=== PATIENT | female | born 1960 | race Asian ===

== ENCOUNTER 2016-07-22 06:46 | Emergency (ER) | payer BC ==
[~2016-07-22] VITALS: Ht 162.6 cm; Wt 58.9 kg
[~2016-07-22 06:46] MED LIST: CHOL1000 PO; CIPR-255 PO; ESOMEPRAZOLE PO; NORE1TAB50 PO; magnesium/zinc PO
[2016-07-22 06:47] VITALS: TEMP 36.4; Ht 162.6 cm; Wt 58.9 kg
[2016-07-22] MEDS ORDERED: MoRPHine SULFATE 4 MG/ML 1 ML CARP\\VIAL IV STA ×2 (07:14→10:36)
[2016-07-22] MEDS ORDERED: ONDANSETRON INJ 2 MG/ML 2 ML VIAL IV STA (07:14)
[2016-07-22] MEDS ORDERED: SODIUM CHLORIDE 0.9% 1000ML 1,000 ML IV ONE (07:15)
[2016-07-22] MEDS ORDERED: NORE0.3528 PO (07:18)
[2016-07-22] MEDS ORDERED: LVS125 PO (07:18)
[2016-07-22] MEDS ORDERED: PRT/40 PO (07:18)
[2016-07-22] MEDS ORDERED: FLNIN/ NAE (07:18)
[2016-07-22] MEDS ORDERED: MISCCAP80 PO (07:21)
--- NOTE | 2016-07-22 07:24 | EMERGENCY ROOM VISIT NOTE ---
ED Visit Note First contact with patient: 06:57 Patient evaluated with resident. 56 y/o with h/o chronic recurrent abdominal pain for > 4 years off and on with prior GI consultations and negative imaging as well as EGD and colonoscopy. Presented to ED for diffuse mild to moderate lower abdominal pain associated with one episode BRBPR (rectal exam heme negative with external hemorrhoid noted and no active bleeding). (-) CT, satsifactory labs. Patient continued to have some pain on re-exam prior to discharge with benign abdomen. I advised Tylenol & Motrin ever 6 hours as needed for pain, miralax for any constipation in context of hemorrhois and pt/ understands to f/u w/ PCP or return to ER for any worsening or worrisome symptoms.
--- NOTE | 2016-07-22 07:55 | EMERGENCY ROOM VISIT NOTE ---
History First contact with patient: 06:52 Chief Complaint: ABDOMINAL PAIN Stated Complaint: SEVERE ABDOMINAL PAIN,BLOODY TISSUE IN STOOL Nursing Triage Summary: having lower abdominal pain since this morning around 2 am. nausea, some bloody diarrhea. "has had ct scans, mris, blood testing everything has been normal in the past. History of Present Illness The patient is a 56 year old female who presents to the Emergency Room with complaints of severe abdominal pain. She was doing well until 2am this morning when she was suddenly awoken by severe abdominal pain. The pain is diffuse. It predominant resides at a 5-6/ 10 but flares up to 12/10. She says "its so bad I want to ". The pain slightly favors the lower abdomen, she qualifies as sharp. THe pain does not radiate to the flanks or the back. She came to the ED because the pain is much more severe than her baseline abdominal pain. She has had nausea but no vomiting. She has 1 BM this morning that was initially solid but became looser. She saw bloody tissue mixed in with the stool. She reports chills and sweats but denies fevers. She denies any dysuria or flank pain She does note eating some dry noodles "that tasted off". She was recently on a course of 10 days of Ciprofloxacin 2 weeks ago for a UTI. She notes she tolerated that well. Regarding her background, she has chronic GI issues and reports extensive work- up done last October in [facility]. She does not have reports available with her but states that she had CT, EGD, colonoscopy and EUS. She has followed with [facility] and has follow-up with Dr. Funes in the spring for re-evaluation and determination if additional work-up is necessary. Past Medical/Surgical History Medical Problems: (1) Bronchitis Family History No pertinent family history Social History Smoking Status: Never Smoker Smokeless Tobacco Use: No Alcohol Use: none Drug Use: none Marital Status: Housing Status: lives with significant other Occupation Status: other (hommaker) Current/Historical Medications Scheduled Fluticasone Propionate (Fluticasone Propionate), 2 SPRAYS ZEYNEP DAILY Hyoscyamine Sulfate (Hyoscyamine Sulfate), 0.125 MG PO Q6 Norethindrone (Contraceptive) (Lyn), 1 TAB PO DAILY Probiotic Product (Probiotic), 1 CAP PO DAILY Allergies Coded Allergies: Aspirin (Verified Allergy, Unknown, UNKNOWN, 07/22/16) Physical Exam Vital Signs Date Time Temp Pulse Resp B/P Pulse Ox O2 Delivery O2 Flow Rate FiO2 07/22/16 13:13 63 18 120/65 98 Room Air 07/22/16 12:30 68 18 127/71 98 Room Air 07/22/16 10:30 67 18 121/76 100 Room Air 07/22/16 08:30 68 16 118/71 99 Room Air 07/22/16 06:47 36.4 78 18 113/77 99 Room Air Pain Rating (0-10): 5-12 Physical Exam Constitutional: Vital signs as above were reviewed. Eyes: Pupils equal, round, and reactive to light. Extraocular muscles are intact. No proptosis. No photophobia. ENT: Mucous membranes are moist. Oropharynx is clear. No sinus tenderness. TMs are clear bilaterally. Cardiovascular: Heart with a regular rate and rhythm. Pulses are palpable and symmetric in all 4 extremities. No pedal edema appreciated. Respiratory: Lungs clear to auscultation bilaterally. No wheezes, rales, or rhonchi appreciated. No accessory muscle use. No retractions. No increased work of breathing. GI: Abdomen soft, r, nondistended. Normal active bowel sounds. No abdominal hernias appreciated. No rebound. No guarding. Diffuse abdominal tenderness Navarro's sign negative : No CVA tenderness appreciated. Musculoskeletal: No midline cervical or vertebral tenderness. No gross deformities. No bony tenderness. No calf swelling or tenderness. Integumentary: Warm, dry, no rashes appreciated. Neurological: Patient awake, alert, and oriented x 3. Cranial nerves two through 12 grossly intact. Motor 5 out of 5 strength bilateral upper and lower extremities. Lymph: No cervical lymphadenopathy appreciated. Medical Decision & Procedures ER Provider Diagnostic Interpretation: ABDOMEN AND PELVIS CT WITH IV AND ORAL CONTRAST CT DOSE: 279.39 mGy.cm HISTORY: Generalized abdominal pain. TECHNIQUE: Multiaxial CT images of the abdomen and pelvis were performed following the use of intravenous and oral contrast. COMPARISON STUDY: Abdomen and pelvis CT 12/18/2013. FINDINGS: The lung bases are essentially clear. No pneumoperitoneum. No pneumatosis. No suspicious lytic or blastic osseous lesions. The liver demonstrates a few subcentimeter hypodense lesions within the right hepatic lobe. The largest at the inferior aspect of the right hepatic lobe measures 7 mm. These remain unchanged and likely represent cysts. The gallbladder, spleen, adrenal glands, and pancreas are unremarkable. The kidneys enhance normally. No hydronephrosis. No retroperitoneal lymphadenopathy. Normal bladder. The uterus and bilateral ovaries are unremarkable. No evidence for bowel obstruction. Normal appendix. Mild thickening of the colon at the splenic flexure and descending colon. A few colonic diverticula. IMPRESSION: 1. Mild bowel wall thickening involving the splenic flexure of the colon and descending colon. This is consistent with a nonspecific colitis. This could be due to an infectious, inflammatory, or less likely ischemic process. 2. Normal appendix. 3. No evidence for bowel obstruction. Electronically signed by: Gabo Tinsley M.D. 07/22/2016 11:44 AM Laboratory Results 07/22/16 07:40 Red Blood Count 4.68, Mean Corpuscular Volume 89.1, Mean Corpuscular Hemoglobin 31.2, Mean Corpuscular Hemoglobin Concent 35.0, Mean Platelet Volume 10.1, Neutrophils (%) (Auto) 83.3, Lymphocytes (%) (Auto) 15.0, Monocytes (%) (Auto) 1.3, Eosinophils (%) (Auto) 0.1, Basophils (%) (Auto) 0.3, Neutrophils # (Auto) 6.54, Lymphocytes # (Auto) 1.18, Monocytes # (Auto) 0.10, Eosinophils # (Auto) 0.01, Basophils # (Auto) 0.02 07/22/16 07:40 Test 07/22/16 07:40 07/22/16 07:45 07/22/16 07:59 White Blood Count 7.85 K/uL (4.8-10.8) Red Blood Count 4.68 M/uL (4.2-5.4) Hemoglobin 14.6 g/dL (12.0-16.0) Hematocrit 41.7 % (37-47) Mean Corpuscular Volume 89.1 fL (80-100) Mean Corpuscular Hemoglobin 31.2 pg (25-34) Mean Corpuscular Hemoglobin Concent 35.0 g/dl (32-36) Platelet Count 231 K/uL (130-400) Mean Platelet Volume 10.1 fL (7.4-10.4) Neutrophils (%) (Auto) 83.3 % Lymphocytes (%) (Auto) 15.0 % Monocytes (%) (Auto) 1.3 % Eosinophils (%) (Auto) 0.1 % Basophils (%) (Auto) 0.3 % Neutrophils # (Auto) 6.54 K/uL (1.4-6.5) Lymphocytes # (Auto) 1.18 K/uL (1.2-3.4) Monocytes # (Auto) 0.10 K/uL (0.11-0.59) Eosinophils # (Auto) 0.01 K/uL (0-0.5) Basophils # (Auto) 0.02 K/uL (0-0.2) RDW Standard Deviation 47.8 fL (36.4-46.3) RDW Coefficient of Variation 14.7 % (11.5-14.5) Immature Granulocyte % (Auto) 0.0 % Immature Granulocyte # (Auto) 0.00 K/uL (0.00-0.02) Anion Gap 14.0 mmol/L (3-11) Est Creatinine Clear Calc Drug Dose 78.7 ml/min Estimated GFR () 112.8 Estimated GFR (Non- 97.3 BUN/Creatinine Ratio 25.8 (10-20) Calcium Level 9.5 mg/dl (8.5-10.1) Total Bilirubin 0.5 mg/dl (0.2-1) Aspartate Amino Transf (AST/SGOT) 11 U/L (15-37) Alanine Aminotransferase (ALT/SGPT) 18 U/L (12-78) Alkaline Phosphatase 50 U/L (45-117) C-Reactive Protein < 0.29 mg/dl (0-0.29) Total Protein 7.6 gm/dl (6.4-8.2) Albumin 4.0 gm/dl (3.4-5.0) Globulin 3.6 gm/dl (2.5-4.0) Albumin/Globulin Ratio 1.1 (0.9-2) Lipase 166 U/L (73-393) Procalcitonin < 0.05 ng/mL (0-0.5) Urine Color YELLOW Urine Appearance CLEAR (CLEAR) Urine pH 7.5 (4.5-7.5) Urine Specific [place] 1.020 (1.000-1.030) Urine Protein NEG (NEG) Urine Glucose (UA) NEG (NEG) Urine Ketones NEG (NEG) Urine Occult Blood NEG (NEG) Urine Nitrite NEG (NEG) Urine Bilirubin NEG (NEG) Urine Urobilinogen NEG (NEG) Urine Leukocyte Esterase SMALL (NEG) Urine WBC (Auto) 10-30 /hpf (0-5) Urine RBC (Auto) 5-10 /hpf (0-4) Urine Hyaline Casts (Auto) 5-10 /lpf (0-5) Urine Epithelial Cells (Auto) >30 /lpf (0-5) Urine Bacteria (Auto) NEG (NEG) Bedside Lactic Acid Venous 1.97 mmol/L (0.90-1.70) Medications Administered Medications (Trade) Dose Ordered Sig/Bg Route Start Time Stop Time Status Last Admin Dose Admin Sodium Chloride (Nss 1000ml) 1,000 ml @ 999 mls/hr Q1H1M ONCE IV 07/22/16 07:15 07/22/16 08:15 DC 07/22/16 07:41 999 MLS/HR Ondansetron HCl (Zofran Inj) 4 mg NOW STAT IV 07/22/16 07:14 07/22/16 07:15 DC 07/22/16 07:41 4 MG Morphine Sulfate (MoRPHine SULFATE INJ) 4 mg NOW STAT IV 07/22/16 07:14 07/22/16 07:15 DC 07/22/16 07:41 4 MG Morphine Sulfate (MoRPHine SULFATE INJ) 4 mg NOW STAT IV 07/22/16 10:36 07/22/16 10:37 DC 07/22/16 10:41 4 MG ED Course 06:50 - Patient seen and assessed Labs: CBC, CMP, Lipase I L NSS bolus Zofran 4 mg Morphine 4 mg IV 07:30 - Reviewed with Dr. Borja Ordered CT abdo/pelvis with and without contast ordered 09:20 - Labs reviewed; CBC, CMP and lipase WNL Patient feeling slightly better 10:35 - Re-assessed patient; patient complains of pain going back to baseline Additional 4 mg Morphine IV given Patient ready for CT 12:00 - Signout of case to Dr. Borja 13:20 - Discussed case the Dr. Borja; patient has been discharged. CT reviewed, mild colitis but other normal CT scan; patient was discharged with recommendations for Tylenol and Motrin and Miralax PRN for constipation Medical Decision History was obtained, physical examination performed and EMR reviewed. Patient is a 56 year old with female with long-standing undifferentiated GI issues, who presents with acute flare of abdominal pain. She has had extensive work-up for her abdominal pain, but came to the ED because it was worse than before. Differential for her presentation includes: infective, inflammatory or ischemic colitis, IBS, pancreatitis. Labs were reviewed and CBC and CMP, Lipase were all normal, providing good evidence for ruling-out pancreatitis, hepatitis. She did have a mildly elevated POC lactate, but lacks risk factors for ischemic disease so ischemic colitis low likelihood. Vitals were all within normal limits without hemodynamic instability. She does have a mild colitis at the ischemic flexure. These results were discussed with the patient by Dr. Borja who recommends outpatient observation and supportive treatment and return to the ED if symptoms worsen. This includes Tylenol and Motrin for pain relief with PRN miralax. Patient was discharged in stable condition. Impression Primary Impression: Abdominal pain Departure Information Dispostion Home / Self-Care Condition GOOD Referrals Cory Bailey M.D. (PCP) Patient Instructions My [facility]
[2016-07-22 07:58] LABS: BASO % 0.3 %; BASO ABS # 0.02 K/uL (0-0.2); COMPLETE YES; EOS % 0.1 %; HEMATOCRIT 41.7 % (37-47); LYMPH ABS # 1.18 K/uL (1.2-3.4); MEAN CELL VOLUME 89.1 fL (80-100); MEAN CORPUSCULAR HEMOGLOBIN 31.2 pg (25-34); MEAN PLATELET VOLUME 10.1 fL (7.4-10.4); MONO % 1.3 %; NEUT % 83.3 %; PLATELET COUNT 231 K/uL (130-400); RED BLOOD COUNT 4.68 M/uL (4.2-5.4); WHITE BLOOD COUNT 7.85 K/uL (4.8-10.8)
[2016-07-22 08:04] LABS: URINE APPEARANCE CLEAR (CLEAR); URINE BILIRUBIN NEG (NEG); URINE COLOR YELLOW; URINE EPITHELIAL CELL AUTO >30 /lpf (0-5); URINE NITRITE NEG (NEG); URINE PH 7.5 (4.5-7.5); UROBILINOGEN NEG (NEG); ZZUR CULT IF INDIC CLEAN CATCH YES
[2016-07-22 08:06] LABS: MANUAL MICROSCOPIC REQUIRED? NO; REVIEW REQ? NO
[2016-07-22 08:31] LABS: ALT/SGPT 18 U/L (12-78); BLOOD UREA NITROGEN 18 mg/dl (7-18); BUN/CREATININE RATIO 25.8 (10-20); C-REACTIVE PROTEIN < 0.29 mg/dl (0-0.29); CALCIUM 9.5 mg/dl (8.5-10.1); CARBON DIOXIDE 21 mmol/L (21-32); CHLORIDE 107 mmol/L (98-107); CREATININE 0.69 mg/dl (0.60-1.20); GLUCOSE 118 mg/dl (70-99); POTASSIUM 3.7 mmol/L (3.5-5.1); SODIUM 142 mmol/L (136-145)
[2016-07-22 08:48] LABS: ALB/GLOB RATIO 1.1 (0.9-2); ALKALINE PHOSPHATASE 50 U/L (45-117); AST/SGOT 11 U/L (15-37)
[2016-07-22] MEDS ORDERED: OPTIRAY 320 IV PRN (11:15)
--- NOTE | 2016-07-22 11:46 | DIAGNOSTIC IMAGING REPORT ---
ABDOMEN AND PELVIS CT WITH IV AND ORAL CONTRAST CT DOSE: 279.39 mGy.cm HISTORY: Generalized abdominal pain. TECHNIQUE: Multiaxial CT images of the abdomen and pelvis were performed following the use of intravenous and oral contrast. COMPARISON STUDY: Abdomen and pelvis CT 12/18/2013. FINDINGS: The lung bases are essentially clear. No pneumoperitoneum. No pneumatosis. No suspicious lytic or blastic osseous lesions. The liver demonstrates a few subcentimeter hypodense lesions within the right hepatic lobe. The largest at the inferior aspect of the right hepatic lobe measures 7 mm. These remain unchanged and likely represent cysts. The gallbladder, spleen, adrenal glands, and pancreas are unremarkable. The kidneys enhance normally. No hydronephrosis. No retroperitoneal lymphadenopathy. Normal bladder. The uterus and bilateral ovaries are unremarkable. No evidence for bowel obstruction. Normal appendix. Mild thickening of the colon at the splenic flexure and descending colon. A few colonic diverticula. IMPRESSION: 1. Mild bowel wall thickening involving the splenic flexure of the colon and descending colon. This is consistent with a nonspecific colitis. This could be due to an infectious, inflammatory, or less likely ischemic process. 2. Normal appendix. 3. No evidence for bowel obstruction. Electronically signed by: Gabo Tinsley M.D. 07/22/2016 11:44 AM Dictated Date/Time: 07/22/2016 11:28 AM
[2016-07-22 13:13] VITALS: BP 120/65; PULSE 63; O2SAT 98
== END 2016-07-22 13:16 | disposition home or self-care (01) ==
LOC: C.EDB 06:47
DX: R10.30 Lower abdominal pain, unspecified (principal); Z79.899 Other long term (current) drug therapy

== ENCOUNTER → 2016-10-09 | Outpatient (CLI) | payer BC ==
[~2016-10-09] MED LIST changes: -CHOL1000 PO; -CIPR-255 PO; -ESOMEPRAZOLE PO; +FLNIN/ NAE; +LVS125 PO; +MISCCAP80 PO; +NORE0.3526 PO; -NORE1TAB50 PO; -magnesium/zinc PO
--- NOTE | 2016-10-09 12:48 | MAMMOGRAPHY REPORT ---
BILATERAL DIGITAL DIAGNOSTIC MAMMOGRAM TOMOSYNTHESIS WITH CAD AND TARGETED BILATERAL ULTRASOUND: 09/28 CLINICAL HISTORY: Six-month follow-up of left breast masses seen on breast ultrasound. Also due for routine bilateral mammography. The patient denies any palpable lumps or other current complaints. TECHNIQUE: Breast tomosynthesis in addition to standard 2D mammography was performed. Current study was also evaluated with a Computer Aided Detection (CAD) system. Bilateral CC and MLO 2-D and katina synthesis images were obtained. COMPARISON: Comparison is made to exams dated: 05/15/2016 ultrasound, 10/06/2015 ultrasound, 10/06/2015 mammogram, 04/20/2015 mammogram, 04/20/2015 ultrasound biopsy, and 04/05/2015 ultrasound - [facility]. BREAST COMPOSITION: The tissue of both breasts is heterogeneously dense, which may obscure small ma sses. FINDINGS: There is a nodular 8 mm asymmetry seen within the right medial breast on the cc view, for which ultrasound is recommended. The remainder of both breasts are stable compared to prior exams, without suspicious masses, calcifications, or areas of architectural distortion noted. A biopsy ma rker clip is again noted in the left upper outer quadrant. Bilateral scattered benign-appearing clint cifications are again noted. Targeted ultrasound was performed of the area of the previously seen left breast masses for which fo llow-up was recommended. Additionally, ultrasound was performed of the right medial breast in the r egion of the mammographic asymmetry. In the right breast at 1:00, 2 cm from the nipple, there is an oval circumscribed nearly anechoic mass which measures 6 x 3 x 6 mm, which is stable dating back to the 04/05/2015 exam. This is considered benign given the morphology and stability and is felt to co rrelate with the mammographic asymmetry. In the left breast at 10:00 periareolar region, again noted is an oval circumscribed slightly hypoec hoic mass which measures 6 x 3 x 7 mm. This is stable compared to the April 2016 exam, and on ra dial imaging has the appearance of the probable normal fat lobule. In the left breast at 11:00 lizy areolar region, again noted is an oval hypoechoic mass which measures 4 x 2 x 2 mm, stable compared to the April 2016 exam. An incidental anechoic benign 3 mm simple cyst is seen within the left 1 1:00 subareolar breast. In the left breast at 8:00 periareolar region, there is an isoechoic mass w hich measures 4 mm, which appears stable compared to the April 2016 exam and appears to efface on the radial imaging suggestive of normal tissue. In the left breast at 3:00 periareolar region, the re is an oval circumscribed hypoechoic mass which measures 6 x 3 x 5 mm, not significantly changed c ompared to the April 2016 exam. IMPRESSION: ACR-BI-RADS CATEGORY 3: PROBABLY BENIGN, TARGETED ULTRASOUND ACR-BI-RADS CATEGORY 3: [place] OBABLY BENIGN 1. No mammographic evidence of malignancy in either breast. Recommend routine bilateral mammograms in one year. 2. The previously seen small hypoechoic masses in the left breast on ultrasound are stable compared to the April 2016 exam and are probably benign. Recommend short interval follow-up ultrasound i n 6 months to confirm longer stability. Screening bilateral whole breast ultrasound can be performe d at that time (30 minute time slot). The patient has been verbally notified of the results. Approximately 10% of breast cancers are not detected with mammography. A negative mammographic repor t should not delay biopsy if a clinically suggestive mass is present. Angelika Guzman M.D. ah/:10/09/2016 12:03:40 Tax Audit Manager: Anastasiya Townsend, [facility] letter sent: Follow Up Recommended 3 BI-RADS Code: ACR-BI-RADS Category 3: Probably Benign Ultrasound BI-RADS: ACR-BI-RADS Category 3: P robably Benign
== END | disposition home or self-care (01) ==
LOC: C.MAMM 08:29
PROVIDERS: ATTEND Obstetrics & Gynecology
DX: Z09 Encounter for follow-up examination after completed treatment for conditions other than malignant neoplasm (principal); N63 Unspecified lump in breast

== ENCOUNTER 2017-03-28 08:02 | Day surgery (SDC) | payer BC ==
[2017-03-11 10:15] VITALS: BMI 21.0
[2017-03-13 09:34] LABS: BASO % 0.6 %; BASO ABS # 0.04 K/uL (0-0.2); COMPLETE YES; EOS % 1.5 %; HEMATOCRIT 41.5 % (37-47); IG% 0.2 %; LYMPH % 31.8 %; LYMPH ABS # 2.07 K/uL (1.2-3.4); MEAN CORPUSCULAR HEMOGLOBIN 30.8 pg (25-34); MEAN CORPUSCULAR HGB CONC 33.5 g/dl (32-36); MEAN PLATELET VOLUME 9.7 fL (7.4-10.4); NEUT % 61.9 %; PLATELET COUNT 254 K/uL (130-400); RED BLOOD COUNT 4.51 M/uL (4.2-5.4); WHITE BLOOD COUNT 6.51 K/uL (4.8-10.8)
[~2017-03-28] VITALS: Ht 162.6 cm; Wt 57.7 kg
[~2017-03-28 08:02] MED LIST changes: +LACTATED RINGER'S 1000ML 1,000 ML IV SCH; -MISCCAP80 PO; -NORE0.3526 PO; +NORE0.3528 PO
[2017-03-28 08:31] VITALS: BP 123/63; PULSE 68; TEMP 36.6; O2SAT 99; Ht 162.6 cm; Wt 57.7 kg
[2017-03-28] MEDS ORDERED: FENTANYL CITRATE INJ 50 MCG/1 ML 2 ML VIAL IV PRN (08:45)
[2017-03-28] MEDS ORDERED: ATROPINE SULFATE 0.1 MG/ML 5ML SYR IV PRN (08:45)
[2017-03-28] MEDS ORDERED: ONDANSETRON INJ 2 MG/ML 2 ML VIAL IV PRN (08:45)
[2017-03-28] MEDS ORDERED: EpHEDrine SULFATE INJ 50 MG/ML AMP IV PRN (08:45)
[2017-03-28] MEDS ORDERED: MIDAZOLAM HCL 1 MG/ML 2ML VIAL ONE (09:19)
[2017-03-28] MEDS ORDERED: FENTANYL CITRATE INJ 50 MCG/1 ML 2 ML VIAL ONE (09:19)
--- NOTE | 2017-03-28 10:30 | Endo History and Physical ---
History & Physical Date of Service: Mar 28, 2017. Chief Complaint: gastric submucoasl mass gastric IM Referring Physician: History of Present Illness hx gastric submucosal nodule; gastric IM Past Surgical History Hx Cardiac Surgery: No Hx Abdominal Surgery: Yes (SHORT PIECE HANDLER LAPRASCOPY WITH FULGERATION OF ENDOMETRIOSIS) Hx Post-Op Nausea and Vomiting: No Hx Cancer Surgery: No Hx Thoracic Surgery: No Hx Orthopedic: No Hx Urinary Tract Surgery: No Social History Smoking Status: Never Smoker Hx Substance Use: No Hx Alcohol Use: No Allergies Coded Allergies: Aspirin (Verified Allergy, Mild, UPSET STOMACH, 03/28/17) Current Medications Reported Home Medications Medications Dose Route/Sig Max Daily Dose Days Date Category Hyoscyamine Sulfate 0.125 Mg Tab 0.125 Mg PO Q6 PRN 07/22/16 Reported Fluticasone Propionate 120 Sprays/6000 Mcg Inha 2 Sprays ZEYNEP QPM 07/22/16 Reported Lyn (Norethindrone (Contraceptive)) 0.35 Mg Tab 1 Tab PO QAM 07/22/16 Reported Vital Signs Weight (Kilograms): 57.73 Height (Feet): 5 Height (Inches): 4 Date Time Temp Pulse Resp B/P (MAP) Pulse Ox O2 Delivery O2 Flow Rate FiO2 03/28/17 08:31 36.6 68 18 123/63 (83) 99 Room Air Physical Exam AAOx3 Nls1s2 Lungs CTA Abd soft NT/ND + BS - CCE Assessment and Plan EGD/bx and EUS with possible FNA
[2017-03-28] MEDS ORDERED: PROPOFOL IV EMULSION 10 MG/ML 20 ML VIAL IV ONE (10:57)
[2017-03-28] MEDS ORDERED: ONDANSETRON INJ 2 MG/ML 2 ML VIAL ONE (10:57)
[2017-03-28] MEDS ORDERED: DEXAMETHASONE SOD INJ 4 MG/ML VIAL ONE (10:57)
[2017-03-28] MEDS ORDERED: LIDOCAINE HCL 2% 2 ML VIAL (20MG/ML) ONE (10:57)
[2017-03-28] MEDS ORDERED: SUCCINYLCHOLINE CHLORIDE 20 MG/ML 10 ML VIAL IV ONE (10:57)
[2017-03-28] MEDS ORDERED: ROCURONIUM BROMIDE 10 MG/ML 5 ML VIAL IV ONE (10:57)
[2017-03-28] MEDS ORDERED: EpHEDrine SULFATE 50MG/5ML SYR ONE (10:58)
[2017-03-28] MEDS ORDERED: SODIUM CHLORIDE 0.9% 500ML 500 ML IV ONE (11:00)
--- NOTE | 2017-03-28 13:09 | Discharge Instructions ---
Endoscopy Patient Instructions Date / Procedure(s) Performed Mar 28, 2017. EGD, Other Allergy Information Coded Allergies: Aspirin (Verified Allergy, Mild, UPSET STOMACH, 03/28/17) Discharge Date / Findings Mar 28, 2017. polyp incisura GB polyp submucosal nodule antrum - FNA Medication Instructions Restart Stopped Medication(s): Reported Home Medications Medications Dose Route/Sig Max Daily Dose Days Date Category Hyoscyamine Sulfate 0.125 Mg Tab 0.125 Mg PO Q6 PRN 07/22/16 Reported Fluticasone Propionate 120 Sprays/6000 Mcg Inha 2 Sprays ZEYNEP QPM 07/22/16 Reported Lyn (Norethindrone (Contraceptive)) 0.35 Mg Tab 1 Tab PO QAM 07/22/16 Reported Reported Home Medications Medications Dose Route/Sig Max Daily Dose Days Date Category Hyoscyamine Sulfate 0.125 Mg Tab 0.125 Mg PO Q6 PRN 07/22/16 Reported Fluticasone Propionate 120 Sprays/6000 Mcg Inha 2 Sprays ZEYNEP QPM 07/22/16 Reported Lyn (Norethindrone (Contraceptive)) 0.35 Mg Tab 1 Tab PO QAM 07/22/16 Reported Provider Instructions Activity Restrictions - No exercising or heavy lifting for 24 hours. - Do not drink alcohol the day of the procedure. - Do not drive a car or operate machinery until the day after the procedure. - Do not make any important decisions or sign important papers in 24 hours after the procedure. Following Day: - Return to full activity which may include returning to work/school. Diet Start your diet with liquids and light foods (jello, soup, juice, toast). Then eat your usual diet if not nauseated. Treatment For Common After Affects For mild abdominal pain, bloating, or excessive gas: - Rest - Eat lightly - Lie on right side Follow-Up Information Follow-up with as scheduled Anesthesia Information What You Should Know You have had a procedure that required some medicine to reduce anxiety and discomfort. This treatment is called moderate sedation. After receiving the treatment, you may be sleepy, but you will be able to breathe on your own. The effects of the treatment may last for several hours. Follow these instructions along with Activity/Diet recommendations noted above: * Do NOT do anything where dizziness or clumsiness would be dangerous. * Rest quietly at home today, then you can be up and about tomorrow. * Have a responsible person stay with you the rest of today. * You may have had an I.V. today. If so, you may take the dressing off later today. Recommendations Call your doctor if: * Trouble breathing * Continuous vomiting for more than 24 hours * Temperature above 101 degrees * Severe abdominal pain or bloating * Pain not relieved by pain medicine ordered * There is increased drainage or redness from any incision * A large amount of rectal bleeding greater than 2-3 tablespoons. (If you had a polyp/s removed or have hemorrhoids, a small amount of blood - from the rectum is to be expected.) * You have any unanswered questions or concerns. IN THE EVENT OF A SERIOUS EMERGENCY, GO TO THE NEAREST EMERGENCY ROOM Your discharge instructions were prepared by provider García Funes. Patient Instructions Signature Page Milton Franco Patient (or Guardian) Signature/Date: I have read and understand the instructions given to me by my caregivers. Caregiver/RN/Doctor Signature/Date: The above-named patient and/or guardian has received patient instructions on this date. + Original Patient Signature Page (only) stays with chart. Please make copy for patient.
[2017-03-28 13:15] VITALS: BP 117/64; PULSE 74; TEMP 36.5; O2SAT 99
--- NOTE | 2017-03-28 13:32 | GI REPORT ---
Procedure Date: 03/28/2017 10:34 AM Procedure: Upper GI endoscopy Indications: Epigastric abdominal pain, Dyspepsia, Intestinal metaplasia, Follow-up of intestinal metaplasia Medicines: General Anesthesia Complications: No immediate complications. Estimated blood loss: Minimal. Estimated Blood Loss: Estimated blood loss was minimal. Estimated blood loss was minimal. Procedure: Pre-Anesthesia Assessment: - Prior to the procedure, a History and Physical was performed, and patient medications and allergies were reviewed. The patient's tolerance of previous anesthesia was also reviewed. The risks and benefits of the procedure and the sedation options and risks were discussed with the patient. All questions were answered, and informed consent was obtained. Prior Anticoagulants: The patient has taken no previous anticoagulant or antiplatelet agents. ASA Grade Assessment: II - A patient with mild systemic disease. After reviewing the risks and benefits, the patient was deemed in satisfactory condition to undergo the procedure. After obtaining informed consent, the endoscope was passed under direct vision. Throughout the procedure, the patient's blood pressure, pulse, and oxygen saturations were monitored continuously. The upper GI endoscopy was accomplished without difficulty. The patient tolerated the procedure well. The scope was introduced through the mouth, and advanced to the second part of duodenum. Findings: The examined esophagus was normal. The Z-line was regular and was found 40 cm from the incisors. A single 8 mm sessile polyp with no bleeding and no stigmata of recent bleeding was found at the incisura. Biopsies were taken with a cold forceps for histology. Estimated blood loss was minimal. Verification of patient identification for the specimen was done by the physician and copy technician using the patient's name and medical record number. A single 20 mm submucosal papule (nodule) with no bleeding and no stigmata of recent bleeding was found in the gastric antrum. Biopsies were taken with a cold forceps for histology. Estimated blood loss was minimal. Verification of patient identification for the specimen was done by the physician and copy technician using the patient's name and medical record number. The greater curvature of the stomach, lesser curvature of the stomach, incisura and pylorus were normal. Biopsies were taken with a cold forceps for histology. Estimated blood loss was minimal. Verification of patient identification for the specimen was done by the physician and copy technician using the patient's name and medical record number. The cardia and gastric fundus were normal on retroflexion. Retained gastric contents are not identified on this exam. Impression: - Normal esophagus. - Z-line regular, 40 cm from the incisors. - A single gastric polyp. Biopsied. - A single submucosal papule (nodule) found in the stomach. Biopsied. - Normal greater curvature of the stomach, lesser curvature of the stomach, incisura and pylorus. Biopsied. Recommendation: - Discharge patient to home (ambulatory). - Patient has a contact number available for emergencies. The signs and symptoms of potential delayed complications were discussed with the patient. Return to normal activities tomorrow. Written discharge instructions were provided to the patient. - Advance diet as tolerated. - Continue present medications. - Perform an upper endoscopic ultrasound (UEUS) today. - Return to GI clinic in 1 month. - Await pathology results. MD García Argueta MD 03/28/2017 1:32:00 PM This report has been signed electronically. Note Initiated On: 03/28/2017 10:34 AM I attest to the content of the Intraoperative Record and orders documented therein, exceptions below
[2017-03-28 13:45] VITALS: BP 111/65; PULSE 73; TEMP 36.6; O2SAT 98
--- NOTE | 2017-03-28 13:45 | GI REPORT ---
Procedure Date: 03/28/2017 10:34 AM Procedure: Upper EUS Indications: Gastric deformity on endoscopy/Subepithelial tumor versus extrinsic compression Medicines: General Anesthesia Complications: No immediate complications. Estimated blood loss: Minimal. Estimated Blood Loss: Estimated blood loss was minimal. Procedure: Pre-Anesthesia Assessment: - Prior to the procedure, a History and Physical was performed, and patient medications and allergies were reviewed. The patient's tolerance of previous anesthesia was also reviewed. The risks and benefits of the procedure and the sedation options and risks were discussed with the patient. All questions were answered, and informed consent was obtained. Prior Anticoagulants: The patient has taken no previous anticoagulant or antiplatelet agents. ASA Grade Assessment: II - A patient with mild systemic disease. After reviewing the risks and benefits, the patient was deemed in satisfactory condition to undergo the procedure. After obtaining informed consent, the endoscope was passed under direct vision. Throughout the procedure, the patient's blood pressure, pulse, and oxygen saturations were monitored continuously. The Scope was introduced through the mouth, and advanced to the duodenum for ultrasound examination from the esophagus, stomach and duodenum. The scope was introduced through the mouth, and advanced to the duodenum for ultrasound examination from the esophagus, stomach and duodenum. The upper EUS was accomplished without difficulty. The patient tolerated the procedure well. Findings: Endoscopic Finding : The examined esophagus was normal. A single sessile polyp with no stigmata of recent bleeding was found at the incisura. Endosonographic Finding : There was no sign of significant endosonographic abnormality in the examined duodenum. No pathologic lymphadenopathy was identified. The esophagus, stomach and duodenum were visualized endosonographically. There was no sign of significant endosonographic abnormality in the esophagus. No pathologic lymphadenopathy was identified. A round intramural (subepithelial) lesion was found in the antrum of the stomach. The lesion was hypoechoic, hyperechoic and heterogenous. Sonographically, the lesion appeared to originate from the muscularis propria (Layer 4). The lesion measured 10 mm (in maximum thickness). The lesion also measured 7 mm in diameter. The outer endosonographic borders were well defined. Fine needle biopsy was performed. Color Doppler imaging was utilized prior to needle puncture to confirm a lack of significant vascular structures within the needle path. Three passes were made with the 21 gauge ultrasound core biopsy needle using a transgastric approach. A visible core of tissue was obtained. Touch preps were performed. The cellularity of the specimen was adequate. Final cytology results are pending. There was no sign of significant endosonographic abnormality in the examined duodenum. No pathologic lymphadenopathy was identified. There was no sign of significant endosonographic abnormality in the ampulla. No pathologic lymphadenopathy and no masses were identified. There was no sign of significant endosonographic abnormality in the common bile duct. The maximum diameter of the duct was 4 mm. A hyperechoic polyp was identified endosonographically in the gallbladder. There was no sign of significant endosonographic abnormality in the visualized portion of the liver. Homogeneous parenchyma and no focal pathology were identified. There was no sign of significant endosonographic abnormality in the pancreatic head, in the pancreatic body and in the pancreatic tail. The pancreatic duct measured up to 1.5 mm in diameter. The pancreas was well visualized, no pathologic lymphadenopathy, no masses, no cysts, the pancreatic duct was well visualized from ampulla to tail, the pancreatic duct was regular in contour. No lymphadenopathy seen. Impression: - Normal esophagus. - A single gastric polyp. - There was no sign of significant pathology in the examined duodenum. - There was no sign of significant pathology in the esophagus. - An intramural (subepithelial) lesion was found in the antrum of the stomach. The lesion appeared to originate from within the muscularis propria (Layer 4). Fine needle biopsy performed. - There was no sign of significant pathology in the examined duodenum. - There was no sign of significant pathology in the ampulla. - There was no sign of significant pathology in the common bile duct. - A polyp was found in the gallbladder. Resection not attempted. - There was no evidence of significant pathology in the visualized portion of the liver. - There was no sign of significant pathology in the pancreatic head, in the pancreatic body and in the pancreatic tail. Recommendation: - Discharge patient to home (ambulatory). See EGD report. - Advance diet as tolerated. - Continue present medications. - Await cytology results and await path results. - Return to GI clinic as previously scheduled. MD García Argueta MD 03/28/2017 1:45:01 PM This report has been signed electronically. Note Initiated On: 03/28/2017 10:34 AM I attest to the content of the Intraoperative Record and orders documented therein, exceptions below
--- NOTE | 2017-03-28 13:58 | Anesthesiology Progress Note ---
Anesthesia Post Op Note Date & Time Mar 28, 2017 at 13:58 Vital Signs Pain Intensity: 0 Vital Signs Past 12 Hours Date Time Temp Pulse Resp B/P (MAP) Pulse Ox O2 Delivery O2 Flow Rate FiO2 03/28/17 13:15 36.5 74 18 117/64 99 Room Air 03/28/17 13:05 36.1 69 20 128/76 100 Room Air 03/28/17 12:55 69 20 129/76 100 Room Air 03/28/17 12:45 78 20 139/85 100 Oxymask 10 03/28/17 12:35 74 19 134/77 100 Oxymask 10 03/28/17 12:29 36.7 85 16 136/80 100 Oxymask 10 03/28/17 08:31 36.6 68 18 123/63 (83) 99 Room Air Notes Mental Status: alert / awake / arousable, participated in evaluation Pt Amnestic to Procedure: Yes Nausea / Vomiting: adequately controlled Pain: adequately controlled Airway Patency, RR, SpO2: stable & adequate BP & HR: stable & adequate Hydration State: stable & adequate Anesthetic Complications: no major complications apparent
== END 2017-03-28 14:05 | disposition home or self-care (01) ==
LOC: C.ACU 08:02
PROVIDERS: ATTEND Internal Medicine Gastroenterology
DX: R10.13 Epigastric pain (principal); K31.89 Other diseases of stomach and duodenum; Z09 Encounter for follow-up examination after completed treatment for conditions other than malignant neoplasm; D12.6 Benign neoplasm of colon, unspecified; K31.7 Polyp of stomach and duodenum; Z68.21 Body mass index [BMI] 21.0-21.9, adult; Z98.890 Other specified postprocedural states

== ENCOUNTER → 2017-04-16 | Outpatient (CLI) | payer BC ==
[~2017-04-16] MED LIST changes: -LACTATED RINGER'S 1000ML 1,000 ML IV SCH
--- NOTE | 2017-04-17 07:48 | MAMMOGRAPHY REPORT ---
ULTRASOUND OF BOTH BREASTS: 04/16/2017 CLINICAL HISTORY: Six-month follow-up of left breast masses, and here for screening ultrasound of the remainder of both breasts. The patient denies any current complaints. COMPARISON: Comparison is made to exams dated: 10/09/2016 ultrasound, 10/09/2016 mammogram, 05/15/2016 ultrasound, 10/06/2015 ultrasound, 10/06/2015 mammogram, and 04/20/2015 mammogram - [facility]. TECHNIQUE: Real-time ultrasound of both breasts was performed. FINDINGS: Real-time, high-resolution ultrasound was performed of bilateral breasts including all 4 q uadrants and subareolar regions. In the left breast at 1:00 periareolar region, there is a stable sh adowing region which was previously biopsied and yielded benign pathology. In the left breast at 3:0 0 periareolar region, again noted is an oval circumscribed hypoechoic 4 x 3 x 4 mm mass, stable datin g back to the April 2016 exam. In the left breast at 6:00, 2 cm from the nipple, again noted is a n oval circumscribed hypoechoic 5 x 3 x 5 mm mass, stable dating back to the March 2015 exam and is considered benign given long-term stability. In the left breast at 8:00 periareolar region, again n oted is a 5 mm isoechoic region which is stable dating back to the April 2016 exam and appears to efface on radial imaging suggestive of normal tissue. In the left breast 9:00 periareolar region, ag ain noted is an oval circumscribed nearly anechoic 2 x 3 mm mass, consistent with a cyst. In the lef t 11:00 periareolar region, again noted is a hypoechoic 4 x 3 mm mass which is stable dating back to the April 2016 exam. In the left 10:00 periareolar breast, there is a slightly hypoechoic 7 mm re gion which on radial imaging has the appearance of a normal fat lobule, and is stable compared to the April 2016 exam. In the right breast at 1:00, 2 cm from the nipple, again noted is an oval circumscribed hypoechoic 6 x 6 x 4 mm mass. The mass is stable dating back to the March 2015 exam and is considered benign gi jose guadalupe long-term stability. An oval hypoechoic circumscribed 3 x 2 x 6 mm seen within the right breast at 8:00, 4 cm from the nipple, which is stable dating back to the March 2015 exam and considered be nign given long-term stability. No new masses are noted. IMPRESSION: ACR-BI-RADS CATEGORY 3: PROBABLY BENIGN - FOLLOW-UP RECOMMENDED Bilateral breast masses, some of which are stable dating back to the March 2015 exam and are consid ered benign given long-term stability. Other findings are stable dating back to the April 2016 ex am and are probably benign, including findings in the left 3:00, 8:00, 11:00, and 10:00 breast. Conardo mmend bilateral breast ultrasound in 12 months, to confirm 2 years of stability of the left breast ma sses and for routine screening of the right breast (30 minute time slot). The patient is also due fo r bilateral screening mammography September 2017. The patient was verbally notified of the results. Angelika Guzman M.D. ah/:04/16/2017 16:17:14 Stonemason Helper: Angelika Guzman MD, [facility] letter sent: Follow Up Recommended 3 BI-RADS Code: ACR-BI-RADS Category 3: Probably Benign
== END | disposition home or self-care (01) ==
LOC: C.MAMM 09:02
PROVIDERS: ATTEND Obstetrics & Gynecology
DX: N63.10 Unspecified lump in the right breast, unspecified quadrant (principal); N63.20 Unspecified lump in the left breast, unspecified quadrant

== ENCOUNTER → 2017-04-25 | Outpatient (CLI) | payer BC ==
[~2017-04-25] MED LIST changes: +NORE0.3526 PO; -NORE0.3528 PO
== END | disposition home or self-care (01) ==
LOC: C.PAPS 11:28
PROVIDERS: ATTEND Obstetrics & Gynecology
DX: Z01.419 Encounter for gynecological examination (general) (routine) without abnormal findings (principal)

== ENCOUNTER → 2017-10-16 | Outpatient (CLI) | payer OTHER ==
--- NOTE | 2017-10-20 08:06 | MAMMOGRAPHY REPORT ---
BILATERAL DIGITAL SCREENING MAMMOGRAM TOMOSYNTHESIS WITH CAD: 10/16/2017 CLINICAL HISTORY: Routine screening. Patient has no complaints. TECHNIQUE: Breast tomosynthesis in addition to standard 2D mammography was performed. Current study was also evaluated with a Computer Aided Detection (CAD) system. COMPARISON: Comparison is made to exams dated: 04/16/2017 ultrasound, 10/09/2016 ultrasound, 7 mammogram, 05/15/2016 ultrasound, 10/06/2015 ultrasound, and 10/06/2015 mammogram - [facility]. BREAST COMPOSITION: The tissue of both breasts is heterogeneously dense, which may obscure small mas ses. FINDINGS: There is a small cluster of calcifications within the right medial breast at approximately 3:00, for which spot magnification views are recommended for further evaluation. The remainder of both breasts are stable compared to prior exams, without suspicious masses, calcific ations, or areas of architectural distortion noted. A biopsy clip is again noted within the left ant erior breast. Other scattered bilateral benign-appearing calcifications are not significantly change d. IMPRESSION: ACR BI-RADS CATEGORY 0: INCOMPLETE EVALUATION: NEED ADDITIONAL IMAGING EVALUATION Right breast calcifications, for which additional imaging evaluation is recommended. The patient manny l be called to schedule an appointment. Approximately 10% of breast cancers are not detected with mammography. A negative mammographic report should not delay biopsy if a clinically suggestive mass is present. Angelika Guzman M.D. /:10/16/2017 16:31:36 School Traffic Supervisor: Quita BRAVOR, M, [facility] letter sent: Addl Imaging 0 BI-RADS Code: ACR BI-RADS Category 0: Incomplete Evaluation: Need Additional Imaging Evaluation
== END | disposition home or self-care (01) ==
LOC: C.MAMM 08:39
PROVIDERS: ATTEND Obstetrics & Gynecology
DX: Z12.31 Encounter for screening mammogram for malignant neoplasm of breast (principal); R92.1 Mammographic calcification found on diagnostic imaging of breast

== ENCOUNTER → 2017-10-24 | Outpatient (CLI) | payer OTHER ==
--- NOTE | 2017-10-27 07:50 | MAMMOGRAPHY REPORT ---
UNILATERAL RIGHT DIGITAL DIAGNOSTIC MAMMOGRAM: 10/24/2017 CLINICAL HISTORY: Callback from screening mammogram for right breast calcifications. TECHNIQUE: Spot magnification right cc and ML views were obtained. COMPARISON: Comparison is made to exams dated: 10/16/2017 mammogram, 04/16/2017 ultrasound, 10/09/2016 ultrasound, 10/09/2016 mammogram, 10/06/2015 ultrasound, and 10/06/2015 mammogram - [facility]. BREAST COMPOSITION: The tissue of the right breast is heterogeneously dense, which may obscure small masses. FINDINGS: Spot magnification views demonstrate a small 3 mm cluster of slightly coarse, heterogeneous calcifications in the right 3:00 breast. The calcifications are likely not significantly changed co mpared to the 2016 exam, however, do appear slightly increased compared to the 2015 exam. Given that the calcifications have been stable for approximately 1 year, the options of short interval follow-u p versus stereotactic biopsy were discussed with the patient; at this time we will opt for biopsy. IMPRESSION: ACR BI-RADS CATEGORY 4: SUSPICIOUS Small 3 mm cluster of calcifications within the right 3:00 breast, for which stereotactic biopsy is r ecommended for further evaluation. A phone call was made to the physician's office to confirm faxed results were received. The patient has been verbally notified of the results. She tentatively scheduled the biopsy before leaving the [facility]. Approximately 10% of breast cancers are not detected with mammography. A negative mammographic report should not delay biopsy if a clinically suggestive mass is present. Angelika Guzman M.D. ah/:10/24/2017 11:48:49 Call Center Support Consultant: Anastasiya BRAVO(R)(M), [facility] letter sent: Abnormal 4/5 BI-RADS Code: ACR BI-RADS Category 4: Suspicious
== END | disposition home or self-care (01) ==
LOC: C.MAMM 11:04
PROVIDERS: ATTEND Obstetrics & Gynecology
DX: R92.1 Mammographic calcification found on diagnostic imaging of breast (principal)

== ENCOUNTER → 2017-10-30 | Outpatient (CLI) | payer OTHER ==
--- NOTE | 2017-10-30 13:11 | Discharge Instructions ---
Discharge Instructions Procedure Procedure Date: October 30, 2017. Reason for visit: Right Calcs. Discharge Discharge Date: October 30, 2017. Discharge Diagnosis: status post breast biopsy Instructions Activity Recommendations: Additional Limitations (see below) Return to School/Work: no limitations Recommended Home Diet: No Limitations Provider Instructions: ACTIVITY RECOMMENDATIONS: * No lifting, pushing, pulling or exercising the affected side for three days. RETURN TO SCHOOL/WORK: * You may return to work/school after the procedure, but do not perform any strenuous activities for 24 to 48 hours. MEDICATIONS: * Tylenol (two 325 mg) every four to six hours if needed for mild pain (if not allergic to Tylenol). DIET: * Resume previous diet. SPECIAL CARE INSTRUCTIONS: * Keep biopsy site dry for 24 hours. May shower after 24 hours, but do not soak (bathe) incision. * May remove Tegaderm (plastic patch) tomorrow AFTER showering. * Leave the steri-strips on for one week. Allow the steri-strips to fall off by themselves. If not off after one week, you may remove them. You may place a Bandaid crosswise over the strips, if desired. * Apply ice 10 minutes on and 10 minutes off as needed. * Wear a bra at bedtime to sleep more comfortably for 2-3 days. * Your referring physician should have the results after approximately 5 to 7 business days. * Call for unusual bleeding, fever, drainage, etc or if you have any questions call during normal business hours or after hours call Dr Guzman, . FOLLOW UP VISIT: Follow-up with Referring Physician as scheduled. Allergies Coded Allergies: Aspirin (Verified Allergy, Mild, UPSET STOMACH, 03/28/17) Janine Lewis Recommendations: Call your doctor if: * Temperature above 101 degrees * Pain not relieved by pain medicine ordered * There is increased drainage or redness from any incision * You have any unanswered questions or concerns. Your Doctors Instructions noted above were prepared by provider Angelika Guzman. Patient Signature Section: Patient Instructions Signature Page SharifArturo TateDanielPradeep Patient (or Guardian) Signature/Date: I have read and understand the instructions given to me by my caregivers. Caregiver/RN/Doctor Signature/Date: The above-named patient and/or guardian has received patient instructions on this date. + Original Patient Signature Page (only) stays with chart. Please make copy for patient.
--- NOTE | 2017-10-31 14:18 | MAMMOGRAPHY REPORT ---
STEREOTACTIC GUIDED BIOPSY RIGHT BREAST: 10/30/2017 CLINICAL HISTORY: Indeterminate calcifications in the right 3:00 breast. PATIENT CONSENT: The procedure, risks, benefits, and alternatives of stereotactic biopsy with clip pl acement were discussed with the patient, and verbal and written consent was obtained. A timeout was performed immediately prior to the procedure. PROCEDURE DESCRIPTION: With stereotactic guidance, aseptic technique, and lidocaine as a local anesth etic (1% lidocaine to anesthetize the skin and 1% lidocaine with epinephrine to anesthetize the deepe r tissues), the calcifications of concern in the right 3:00 breast were sampled multiple times with a 9-gauge vacuum-assisted biopsy needle ([email or web address]). The path of approach was medial. The specimen radiograph demonstrates calcifications to be present in the samples. The samples containing calcifi cations (labeled "A") were from the samples without calcifications (labeled "B"). A metall ic marker clip was placed at the biopsy site. This was confirmed on postprocedure mammograms. Direc t pressure was applied at the biopsy site and hemostasis was readily achieved. The patient tolerated the procedure without complication. She was given wound care instructions. COMPARISON: Comparison is made to exams dated: 10/24/2017 mammogram, 10/16/2017 mammogram, 10/09/2016 m ammogram, 10/06/2015 mammogram, 10/17/2014 mammogram, and 10/15/2013 mammogram - [facility]. IMPRESSION: STEREOTACTIC GUIDED BIOPSY Stereotactic biopsy of indeterminate calcifications in the right 3:00 breast, with clip placement. T he patient will receive pathology results from her referring provider. Angelika Guzman M.D. ah/:10/30/2017 13:12:52 Attending Technologist: Emiliana Stubbs RT(R)(M), [facility] Power Washer: Annette Beckham RT(R)(M), [facility]
--- NOTE | 2017-10-31 14:21 | MAMMOGRAPHY REPORT ---
UNILATERAL RIGHT DIGITAL DIAGNOSTIC MAMMOGRAM: 10/30/2017 CLINICAL HISTORY: Status post right breast stereotactic biopsy. TECHNIQUE: Postprocedural right CC and ML views were obtained. COMPARISON: Comparison is made to exams dated: 10/24/2017 mammogram, 10/16/2017 mammogram, 04/16/2017 ultrasound, 10/09/2016 ultrasound, 10/09/2016 mammogram, and 05/15/2016 ultrasound - [facility]. BREAST COMPOSITION: The tissue of the right breast is heterogeneously dense, which may obscure small masses. FINDINGS: A new biopsy marker clip is seen at the site of the biopsied calcifications in the right 3 :00 breast. No significant postbiopsy hematoma is seen. IMPRESSION: POST PROCEDURE IMAGING FOR MARKER PLACEMENT New biopsy marker clip status post right breast biopsy. Pathology results are pending. Approximately 10% of breast cancers are not detected with mammography. A negative mammographic report should not delay biopsy if a clinically suggestive mass is present. Angelika Guzman M.D. ah/:10/30/2017 13:26:44 Attending Technologist: Emiliana Stubbs RT(R)(M), [facility] Pilot Control Operator Helper: Annette Beckham RT(R)(M), [facility] BI-RADS Code: Post Procedure Imaging For Marker Placement
== END | disposition home or self-care (01) ==
LOC: C.MAMM 12:38
PROVIDERS: ATTEND Obstetrics & Gynecology
DX: N60.21 Fibroadenosis of right breast (principal); R92.0 Mammographic microcalcification found on diagnostic imaging of breast